=== PATIENT | female | born 1945 | race Caucasian/White ===

== ENCOUNTER 2016-10-04 19:35 | Emergency (ER) | payer OTHER ==
[2016-10-04 19:50] VITALS: TEMP 98.4
[2016-10-04] MEDS ORDERED: KETOROLAC 30 MG/1 ML SDV IVP ONE (20:07)
[2016-10-04] MEDS ORDERED: NS 1,000 ML IV ONE (20:07)
[2016-10-04] MEDS ORDERED: METOCLOPRAMIDE 10 MG/2 ML VIAL IVP ONE (20:07)
[2016-10-04] MEDS ORDERED: HYDROmorphONE/DILAUDID 1 MG/ML SYR IVP ONE (20:07)
--- NOTE | 2016-10-04 20:11 | EDPHY ---
H & P Stated Complaint: N/V, headache Time Seen by Provider: 10/04/16 20:01 HPI/ROS: CHIEF COMPLAINT: Migraine, vomiting he and diarrhea HISTORY OF PRESENT ILLNESS: The patient is a 70-year-old female who comes to the emergency department complaining of nausea, vomiting and diarrhea for the last 3 days. He she states that over the last 24 hours she has also developed a migraine which is typical for her. She tried taking her Maxalt but threw it up. She does have a history of benign meningioma resected several years ago but does not have any residual problems from it. No fevers. No seizures. She states that she is taking care of her granddaughter this week who had the stomach flu that she thinks she caught it from her. The no blood in her stool. REVIEW OF SYSTEMS: Constitutional: denies: chills, fever, recent illness, recent injury EENTM: denies: blurred vision, double vision, nose congestion Respiratory: denies: cough, shortness of breath Cardiac: denies: chest pain, irregular heart rate, lightheadedness, palpitations Gastrointestinal/Abdominal: See HPI Genitourinary: denies: dysuria, frequency, hematuria, pain Musculoskeletal: denies: joint pain, muscle pain Skin: denies: lesions, rash, jaundice, bruising Neurological: denies: headache, numbness, paresthesia, tingling, dizziness, weakness Hematologic/Lymphatic: denies: blood clots, easy bleeding, easy bruising Immunologic/allergic: denies: HIV/AIDS, transplant EXAM: GENERAL: Well-appearing, well-nourished and in no acute distress. HEAD: Atraumatic, normocephalic. EYES: Pupils equal round and reactive to light, extraocular movements intact, sclera anicteric, conjunctiva are normal. ENT: TMs normal, nares patent, oropharynx clear without exudates. Moist mucous membranes. NECK: Normal range of motion, supple without lymphadenopathy or JVD. LUNGS: Breath sounds clear to auscultation bilaterally and equal. No wheezes rales or rhonchi. HEART: Regular rate and rhythm without murmurs, rubs or gallops. ABDOMEN: Soft, nontender, normoactive bowel sounds. No guarding, no rebound. No masses appreciated. BACK: No CVA tenderness, no spinal tenderness, step-offs or deformities EXTREMITIES: Normal range of motion, no pitting or edema. No clubbing or cyanosis. NEUROLOGICAL: Cranial nerves II through XII grossly intact. Normal speech, normal gait. 5/5 strength, normal movement in all extremities, normal sensation PSYCH: Normal mood, normal affect. SKIN: Warm, dry, normal turgor, no visible rashes or lesions. Source: Patient Exam Limitations: No limitations - Personal History Current Tetanus Diphtheria and Acellular Pertussis (TDAP): Yes - Medical/Surgical History Hx Asthma: No Hx Chronic Respiratory Disease: No Hx Diabetes: No Hx Cardiac Disease: No Hx Renal Disease: No Hx Cirrhosis: No Hx Alcoholism: No Hx HIV/AIDS: No Hx Splenectomy or Spleen Trauma: No Other PMH: migraines, reflux - Family History Significant Family History: Hypertension - Social History Smoking Status: Never smoked Alcohol Use: Sober Drug Use: None Constitutional: Initial Vital Signs Temperature (C) 36.9 C 10/04/16 19:46 Heart Rate 84 10/04/16 19:46 Respiratory Rate 20 10/04/16 19:46 Blood Pressure 110/86 H 10/04/16 19:46 O2 Sat (%) 94 10/04/16 19:46 O2 Delivery Mode Room Air O2 (L/minute) 2 Allergies/Adverse Reactions: phenytoin sodium [From Dilantin] Allergy (Severe, Verified 10/04/16 19:46) phenytoin sodium extended [From Dilantin] Allergy (Severe, Verified 10/04/16 19: 46) Penicillins Allergy (Verified 10/04/16 19:46) Home Medications: Medication Instructions Recorded Nefazodone HCl [NEFAZODONE HCL] 400 mg PO 01/21/13 Metoclopramide [Reglan 10 mg tab 10 mg PO BID PRN #10 tab 10/04/16 (RX)] Omeprazole 10/04/16 Medical Decision Making ED Course/Re-evaluation: 9:15 p.m. the patient feels completely better and is asking to go home. She has been hydrated. She is no longer nauseous. Her headache resolved. She declines further observation or treatment. We discussed indications for returning. Differential Diagnosis: Partial list of the Differential diagnosis considered include but were not limited to; migraine, dehydration, gastroenteritis and although unlikely based on the history and physical exam, I also considered tumor, hemorrhage, seizure. I discussed these differential diagnoses and the plan with the patient as well as the usual and expected course. The patient understands that the diagnosis is provisional and that in medicine we are not always correct and that further workup is often warranted. Usual and customary warnings were given. All of the patient's questions were answered. The patient was instructed to return to the emergency department should the symptoms at all worsen or return, otherwise to followup with the physician as we discussed. - Data Points Medications Given: Discontinued Medications Hydromorphone HCl (Dilaudid) 0.5 mg IVP EDNOW ONE Stop: 10/04/16 20:08 Last Admin: 10/04/16 20:27 Dose: 0.5 mg Sodium Chloride (Ns) 1,000 mls @ 0 mls/hr IV ONCE ONE PRN Reason: Wide Open Stop: 10/04/16 20:08 Last Admin: 10/04/16 20:28 Dose: 1,000 mls Ketorolac Tromethamine (Toradol) 30 mg IVP EDNOW ONE Stop: 10/04/16 20:08 Last Admin: 10/04/16 20:28 Dose: 30 mg Metoclopramide HCl (Reglan Injection) 10 mg IVP EDNOW ONE Stop: 10/04/16 20:08 Last Admin: 10/04/16 20:28 Dose: 10 mg Departure - Departure Disposition: Home, Routine, Self-Care Clinical Impression: Gastroenteritis Migraine Qualifiers: Migraine type: without aura Status migrainosus presence: without status migrainosus Intractability: not intractable Qualifier Code: (G43.009) Migraine without aura, not intractable, without status migrainosus Condition: Fair Instructions: Migraine Headache (ED), Gastroenteritis (ED) Referrals: Fatmata Lundy MD [Primary Care Provider] - As per Instructions Prescriptions: Metoclopramide [Reglan 10 mg tab (RX)] 10 mg PO BID PRN #10 tab PRN Reason: Headache
[2016-10-04 21:40] VITALS: BP 109/69; PULSE 75; RESP 16; O2SAT 97
== END 2016-10-04 21:39 | disposition home or self-care (01) ==
DX: K52.9 Noninfective gastroenteritis and colitis, unspecified (principal); G43.009 Migraine without aura, not intractable, without status migrainosus
CPT/HCPCS: 96361; 96374; 96375; 99284; J1170; J1885; J2765

== ENCOUNTER 2017-07-19 20:33 | Emergency (ER) | payer OTHER ==
[2017-07-19] MEDS ORDERED: OXYCODONE/APAP 5/325 TAB PO ONE (21:26)
[2017-07-19] MEDS ORDERED: KETOROLAC 30 MG/1 ML SDV IM ONE (21:26)
--- NOTE | 2017-07-19 21:26 | EDPHY ---
H & P Stated Complaint: lower back pain s/p fall onto rock 30 min ago Time Seen by Provider: 07/19/17 21:14 HPI/ROS: CHIEF COMPLAINT: Low back pain secondary to a fall HISTORY OF PRESENT ILLNESS: The patient is a 71 y/o female complaining of lower back pain secondary to falling on a rock 1 hour ago. This evening she fell off a step because it was dark outside and lost her balance. Patient reports landing directly on her buttocks and sacral area on a rock. She did take Arnica for pain relief. Denies hitting her head or syncope. Denies history of hypertension or diabetes. No fever, chills, chest pain, shortness of breath, palpitations, vomiting, diarrhea, urinary complaints, headache, lightheadedness. No hip pain. REVIEW OF SYSTEMS: Aside from elements discussed in the HPI, a comprehensive 10-point review of systems was reviewed and is negative. PAST MEDICAL HISTORY: Migraines, GERD, brain surgery SOCIAL HISTORY: Friend at bedside, lives in [place], retired VITAL SIGNS: BP: 156/100, others reviewed by me GENERAL: In discomfort while moving. Well-developed, well-nourished, no respiratory distress. HEENT: Atraumatic. Eyes: No icterus, no injection. Mouth: moist mucous membranes. No erythema or lesions. Neck: supple with no adenopathy. LUNGS: Clear to auscultation bilaterally, no wheezes, rhonchi or rales. CARDIAC: Regular rate and rhythm, no rubs, murmurs or gallops. ABDOMEN: Soft, nontender, nondistended, bowel sounds normal. BACK: Sacral and right SI joint tenderness. No lumbar spine tenderness. No CVA tenderness. RECTAL: No tenderness at the coccyx. EXTREMITIES: No trauma. No edema. Full range of motion at both hips without pain. NEURO: Alert and oriented, grossly nonfocal. SKIN: Warm and dry, no rash. PSYCHIATRIC: Normal mentation, no agitation. Portions of this note were transcribed by a medical laboratory technologist. I personally performed a history, physical exam, medical decision making, and confirmed accuracy of information the transcribed note. - Personal History Current Tetanus/Diphtheria Vaccine: Unsure - Medical/Surgical History Hx Asthma: No Hx Chronic Respiratory Disease: No Hx Diabetes: No Hx Cardiac Disease: No Hx Renal Disease: No Hx Cirrhosis: No Hx Alcoholism: No Hx HIV/AIDS: No Hx Splenectomy or Spleen Trauma: No Other PMH: migraines, GERD,. brain sx - Social History Smoking Status: Never smoked Constitutional: Initial Vital Signs Temperature (C) 36.7 C 07/19/17 20:36 Heart Rate 85 07/19/17 20:36 Respiratory Rate 18 07/19/17 20:36 Blood Pressure 156/100 H 07/19/17 20:36 O2 Sat (%) 97 07/19/17 20:36 O2 Delivery Mode Room Air Allergies/Adverse Reactions: phenytoin sodium [From Dilantin] Allergy (Severe, Verified 07/19/17 20:40) phenytoin sodium extended [From Dilantin] Allergy (Severe, Verified 07/19/17 20: 40) Penicillins Allergy (Verified 07/19/17 20:40) Home Medications: Medication Instructions Recorded Omeprazole 10/04/16 Medical Decision Making - Diagnostics Imaging: I viewed and interpreted images myself ED Course/Re-evaluation: The patient is a 71 y/o female presenting with sacral and right SI joint tenderness secondary to missing a step and falling 1 hour ago. She did not hit her head or have a syncopal episode. 2209: I viewed the patient's sacral x-rays, no fracture visualized. 2216: Reassessed patient and discussed imaging findings. I have discussed using an inflatable donut to sit on for comfort. I have also prescribed her hydrocodone for severe pain. Return precautions provided; patient is comfortable with this plan. Differential Diagnosis: Differential diagnosis for the patient's injury was considered including but not limited to contusion, abrasion, laceration, fracture. - Data Points Medications Given: Discontinued Medications Hydrocodone Bitart/Acetaminophen (Voorhees 5/325mg Prepack#6) 1 btl TAKEHOME EDNOW ONE Stop: 07/19/17 22:12 Last Admin: 07/19/17 22:28 Dose: 1 btl Ketorolac Tromethamine (Toradol) 30 mg IM EDNOW ONE Stop: 07/19/17 21:27 Last Admin: 07/19/17 21:39 Dose: 30 mg Oxycodone/Acetaminophen (Percocet 5/325) 1 tab PO EDNOW ONE Stop: 07/19/17 21:27 Last Admin: 07/19/17 21:38 Dose: 1 tab Departure - Departure Disposition: Home, Routine, Self-Care Clinical Impression: Fall (on) (from) other stairs and steps, initial encounter Sacral contusion Qualifiers: Encounter type: initial encounter Qualified Code(s): S30.0XXA - Contusion of lower back and pelvis, initial encounter Condition: Good Instructions: Hydrocodone/Acetaminophen (By mouth), Contusion in Adults (ED) Additional Instructions: Use an inflatable donut to sit on, this should provide more comfort. I recommend Ibuprofen (Motrin, Advil) or Naproxen Sodium (Aleve) for pain and anti-inflammatory effects. You may take either one, but do not take both. Your dose is: Ibuprofen 600 mg every 6-8 hours with food. OR Naproxen Sodium (Aleve) 220 mg every 12 hours. Take Hydrocodone as instructed for severe pain. Follow up with your primary care provider in the next week. Return to the Emergency Department if you experience weakness, numbness, urinary or bowel problems, fever or other worsening of your symptoms. Referrals: Whit Walls MD [Primary Care Provider] - As per Instructions Report Scribed for: Lilliam Moreno Report Scribed by: Naomi Edmond Date of Report: 07/19/17 Time of Report: 21:26
[2017-07-19] MEDS ORDERED: HYDROCOD/APAP 5/325 PREPACK#6 BTL TAKEHOME ONE (22:11)
[2017-07-19 22:43] VITALS: BP 150/103; PULSE 66; RESP 17; TEMP 98.2; O2SAT 93
== END 2017-07-19 22:41 | disposition home or self-care (01) ==
DX: S30.0XXA Contusion of lower back and pelvis, initial encounter (principal); W10.8XXA Fall (on) (from) other stairs and steps, initial encounter
CPT/HCPCS: 72220; 96372; 99284; J1885

== ENCOUNTER → 2017-07-27 | Outpatient (CLI) | payer OTHER | LOC: FIMAGING 10:59 | PROVIDERS: ATTEND Internal Medicine | DX: M51.16 Intervertebral disc disorders with radiculopathy, lumbar region (principal) ==

== ENCOUNTER → 2017-08-12 | Outpatient (CLI) | payer OTHER | LOC: FIMAGING 09:31 | PROVIDERS: ATTEND Physician Assistant | DX: S32.10XA Unspecified fracture of sacrum, initial encounter for closed fracture (principal); M51.36 Other intervertebral disc degeneration, lumbar region ==

== ENCOUNTER → 2017-11-04 | Outpatient (CLI) | payer OTHER | LOC: BMCIMAGING 14:12 | PROVIDERS: ATTEND Internal Medicine | DX: Z12.31 Encounter for screening mammogram for malignant neoplasm of breast (principal) ==

== ENCOUNTER → 2017-11-16 | Outpatient (CLI) | payer OTHER | LOC: BMCIMAGING 10:12 | PROVIDERS: ATTEND Internal Medicine | DX: R92.2 Inconclusive mammogram (principal) ==

== ENCOUNTER → 2018-01-17 | Outpatient (CLI) | payer OTHER | LOC: BHFA 08:30 | PROVIDERS: ATTEND Internal Medicine Cardiovascular Disease | DX: R06.02 Shortness of breath (principal); R00.2 Palpitations | CPT/HCPCS: 78452; 93017; A9500 ==

== ENCOUNTER → 2018-01-24 | Outpatient (CLI) | payer OTHER | LOC: BHFA 09:15 | PROVIDERS: ATTEND Internal Medicine Cardiovascular Disease | DX: R00.2 Palpitations (principal); R06.02 Shortness of breath; R07.9 Chest pain, unspecified ==

== ENCOUNTER → 2018-01-26 | Outpatient (CLI) | payer OTHER | LOC: BHFA 13:45 | PROVIDERS: ATTEND Internal Medicine Cardiovascular Disease | DX: I47.1 Supraventricular tachycardia (principal); R09.02 Hypoxemia ==

== ENCOUNTER 2018-02-20 11:45 | Emergency (ER) | payer OTHER ==
--- NOTE | 2018-02-20 12:01 | EDPHY ---
H & P Stated Complaint: [facility] fall Time Seen by Provider: 02/20/18 12:00 HPI/ROS: HPI: This is a 72-year-old female who presents with Chief Complaint: Accidental fall, right arm and left foot injury Location: Right arm, left foot Quality: Injury Duration: 1 hr prior to arrival Signs and Symptoms: No bleeding, no radiation, no numbness, no weakness, no tingling, no incontinence, no decreased range of motion, + swelling,+ pain, no fever Timing: Acute Severity: Moderate Context: Patient is right-hand dominant, presents with walking on the cement this morning for her morning walk when she lost her traction and everted her left ankle. She reports that she then started to fall forward and she used her right forearm to stop the fall. She reports pain in her right forearm and right left foot at the base of the 5th toe. She denies any ankle pain. She reports that she was ambulatory at the scene. Denies LOC/head injury/neck pain/ dizziness/nausea/vomiting/amnesia. Tetanus is up-to-date. Pain is worsened with touching the area on her forearm and left foot. Denies any decreased range of motion/paresthesias/numbness/tingling. She does not take any blood thinners. She has a small superficial abrasion noted to right forearm that she reports she sustained while trimming the flower push this morning. She cleaned her abrasion this morning with soap and water. Modifying Factors: None Comment: ROS: see HPI Constitutional: No fever, no chills, no weight loss Eyes: No blurred vision Respiratory: No shortness of breath, no cough Cardiovascular: No chest pain Gastrointestinal: No nausea, no vomiting no diarrhea Genitourinary: No dysuria Extremities: No myalgias Neurologic: No weakness, no numbness Skin: No rashes Hematologic: No bruising, no bleeding MEDICAL/SURGICAL/SOCIAL HISTORY: Medical history: Migraines, GERD Surgical history: Brain surgery Social history: Retired. CONSTITUTIONAL: Extremely pleasant, cooperative elderly white female awake and alert, no obvious distress HEENT: Atraumatic and normocephalic, PERRL, EOMI. no globe entrapment, no raccoon eyes. no Schmidt signs. Tympanic membranes clear. No tympanic membrane rupture. Nares patent; no septal hematoma. Oropharynx clear, no exudate and moist pink mucosa. No malocclusion. no dental trauma. Airway patent. No lymphadenopathy. NECK: supple, no midline tenderness, flexion 45 degrees, extension 45 degrees, right and left lateral flexion 45 degrees. No meningismus. Cardiovascular: Normal S1/S2, regular rate, regular rhythm, without murmur rub or gallop. PULMONARY/CHEST: Symmetrical and nontender. no crepitus. Clear to auscultation bilaterally. Good air movement. No accessory muscle usage. ABDOMEN: Soft, nondistended, nontender, no ecchymosis, no rebound, no guarding , no peritoneal signs, no masses or organomegaly. No CVAT. EXTREMITIES: 2/2 pulses, right ELBOW: Full extension to 180, flexion to 150 , no tenderness over medial epicondyle, no tenderness over lateral epicondyle, no effusion. Right forearm shows volar aspect mild swelling medial portion with tenderness to palpation. Superficial abrasion 0.5 in noted to right upper forearm-no active bleeding. Right WRIST: Extension to 70, flexion to 80, radial deviation to 20 degree, ulnar deviation to 30, no scaphoid tenderness, no tenderness over ulnar styloid, no tenderness over radial styloid. Right Ankle: Plantar flexion to 50, dorsiflexion to 20. Foot inversion to 35 degree. No tenderness/swelling Anterior talofibular ligament. No tenderness/ swelling Calcaneofibular ligament, no tenderness/swelling posterior talofibular ligament, no tenderness/swelling posterior inferior tibiofibular ligament. Achilles tendon intact. Patient has tenderness at the base of the 5th digit on the left side with mild swelling. no clubbing, no cyanosis or edema. NEUROLOGICAL: no focal neuro deficits. GCS 15. SKIN: Warm and dry, no erythema. no rash. Good capillary refill. Source: Patient Exam Limitations: No limitations - Personal History Current Tetanus/Diphtheria Vaccine: Yes Current Tetanus Diphtheria and Acellular Pertussis (TDAP): Yes - Medical/Surgical History Hx Asthma: No Hx Chronic Respiratory Disease: No Hx Diabetes: No Hx Cardiac Disease: No Hx Renal Disease: No Hx Cirrhosis: No Hx Alcoholism: No Hx HIV/AIDS: No Hx Splenectomy or Spleen Trauma: No Other PMH: migraines, GERD,. brain sx - Social History Smoking Status: Never smoked Constitutional: Initial Vital Signs Temperature (C) 36.4 C 02/20/18 11:50 Heart Rate 69 02/20/18 11:50 Respiratory Rate 16 02/20/18 11:50 Blood Pressure 125/115 H 02/20/18 11:50 O2 Sat (%) 95 02/20/18 11:50 O2 Delivery Mode Room Air Allergies/Adverse Reactions: phenytoin sodium [From Dilantin] Allergy (Severe, Verified 02/20/18 11:50) phenytoin sodium extended [From Dilantin] Allergy (Severe, Verified 02/20/18 11: 50) Penicillins Allergy (Verified 02/20/18 11:50) Home Medications: Medication Instructions Recorded Omeprazole 10/04/16 Medical Decision Making - Diagnostics Imaging Results: Imaging Impressions Foot X-Ray 02/20/18 11:54 Impression: Nondisplaced fracture transversely oriented through the base of the fifth metatarsal and possible also adjacent fracture in the cuboid. Degenerative change, as above. Diffuse demineralization. Forearm X-Ray 02/20/18 11:54 Impression: Nondisplaced radial neck fracture with right elbow joint effusion. Procedures: Procedure: Splint placement. A right long arm posterior splint and sling was applied by the Emergency Room truck service technician. After application of the splint I returned and re-examined the patient. The splint was adequately immobilizing the joint and distal to the splint the patient's circulation and sensation was intact. Procedure: Splint placement. A left walking boot was applied. After application of the splint I returned and re-examined the patient. The splint was adequately immobilizing the joint and distal to the splint the patient's circulation and sensation was intact. ED Course/Re-evaluation: Patient did not hit her head, no loss of consciousness, no neurological deficits. Head CT scan not required. Tetanus is up-to-date. Fall was mechanical in nature. No signs of syncope/seizure activity/chest pain. Right forearm x-ray and right foot x-ray ordered. Foot x-ray my read shows minimally displaced 5th metatarsal at the base fracture. Forearm x-ray shows nondisplaced radial neck fracture. Again offered patient pain medication, she reports that all pain medications give her migraine headaches and she politely decline. She prefers to use Tylenol and ibuprofen. Patient was ambulatory in the emergency room without deficits prior to discharge. She is able to walk back and forth to the bathroom without any difficulties. Right Long-arm posterior Ortho Glass, sling and left walking boot applied, orthopedic follow-up No signs of neurovascular compromise/tenting of skin/compartment syndrome/ extremities and joints examined above and below area of concern and are neurovascularly intact. This patient was seen under the supervision of my secondary supervising physician. I evaluated care for this patient independently. Discussed this patient with Dr. Doyle. Differential Diagnosis: Differential diagnosis includes but is not limited to radial fracture, ulnar fracture, contusion, sprain, metatarsal fracture. Departure - Departure Disposition: Home, Routine, Self-Care Clinical Impression: Fracture of radial neck, right, closed Qualifiers: Encounter type: initial encounter Fracture alignment: nondisplaced Qualified Code(s): S52.134A - Nondisplaced fracture of neck of right radius, initial encounter for closed fracture Closed nondisplaced fracture of fifth left metatarsal bone Qualifiers: Encounter type: initial encounter Qualified Code(s): S92.355A - Nondisplaced fracture of fifth metatarsal bone, left foot, initial encounter for closed fracture Condition: Good Instructions: Toe Fracture (ED), Elbow Fracture (ED) Additional Instructions: Keep the splint dry and in place until seen by Orthopedics. Wear the sling for comfort. Wear the walking boot while out of bed. Take Tylenol 650 mg every 4 hours and/or Ibuprofen 600 mg every 8 hours with food as needed for pain. Apply ice for 30 minutes at a time; 2-3 times per day for the next 1-[address] not drive a vehicle until cleared by Orthopedics to do so. Follow up with Orthopedics in 5-7 days at which time they will evaluate and recommend with you if conservative management versus further adjuvant therapy is indicated. Return to the ER immediately if you experience new or worsening pain, discoloration, numbness, tingling, or any other symptoms that concern you. Referrals: Whit Walls MD [Primary Care Provider] - As per Instructions Manuel Valles MD [Medical Doctor] - As per Instructions
[2018-02-20 14:04] VITALS: BP 142/93
== END 2018-02-20 14:03 | disposition home or self-care (01) ==
DX: S52.134A Nondisplaced fracture of neck of right radius, initial encounter for closed fracture (principal); S92.355A Nondisplaced fracture of fifth metatarsal bone, left foot, initial encounter for closed fracture; W18.39XA Other fall on same level, initial encounter; Y99.8 Other external cause status; Y93.01 Activity, walking, marching and hiking
CPT/HCPCS: 73090; 73630; 99284; L4386

== ENCOUNTER → 2018-02-25 | Outpatient (CLI) | payer OTHER | LOC: BMCIMAGING 13:23 | PROVIDERS: ATTEND Physician Assistant | DX: S52.131A Displaced fracture of neck of right radius, initial encounter for closed fracture (principal); M77.11 Lateral epicondylitis, right elbow ==

== ENCOUNTER → 2018-03-04 | Outpatient (CLI) | payer OTHER | LOC: BMCIMAGING 09:17 | PROVIDERS: ATTEND Physician Assistant | DX: S52.134A Nondisplaced fracture of neck of right radius, initial encounter for closed fracture (principal); R93.8 Abnormal findings on diagnostic imaging of other specified body structures; M25.421 Effusion, right elbow ==

== ENCOUNTER → 2018-03-07 | Outpatient (CLI) | payer OTHER | LOC: BMCIMAGING 15:11 | PROVIDERS: ATTEND Internal Medicine | DX: Z13.820 Encounter for screening for osteoporosis (principal); M81.0 Age-related osteoporosis without current pathological fracture; Z78.0 Asymptomatic menopausal state; Z87.81 Personal history of (healed) traumatic fracture ==

== ENCOUNTER → 2018-04-01 | Outpatient (CLI) | payer OTHER | LOC: BMCIMAGING 09:01 | PROVIDERS: ATTEND Physician Assistant | DX: S42.401D Unspecified fracture of lower end of right humerus, subsequent encounter for fracture with routine healing (principal) ==

== ENCOUNTER → 2018-04-03 | Outpatient (CLI) | payer OTHER ==
[~2018-04-03] MED LIST: GADOBUTROL 10 ML VIAL IVP ONE
== END ==
LOC: FIMAGING 09:28
PROVIDERS: ATTEND Neurological Surgery
DX: D32.0 Benign neoplasm of cerebral meninges (principal); R90.82 White matter disease, unspecified; G93.89 Other specified disorders of brain
CPT/HCPCS: 70544; 70553; A9585; 82565-PO

== ENCOUNTER 2018-10-13 12:23 | Emergency (ER) | payer OTHER ==
[2018-10-13] MEDS ORDERED: ONDANSETRON DISINTEGRATING 4 MG TAB PO ONE (13:09)
[2018-10-13] MEDS ORDERED: KETOROLAC 30 MG/1 ML SDV IVP ONE (13:09)
[2018-10-13] MEDS ORDERED: NS 1,000 ML IV ONE ×2 (13:12→14:53)
--- NOTE | 2018-10-13 13:12 | EDPHY ---
H & P Stated Complaint: migraine - Personal History Current Tetanus/Diphtheria Vaccine: Yes Current Tetanus Diphtheria and Acellular Pertussis (TDAP): Yes - Medical/Surgical History Hx Asthma: No Hx Chronic Respiratory Disease: No Hx Diabetes: No Hx Cardiac Disease: No Hx Renal Disease: No Hx Cirrhosis: No Hx Alcoholism: No Hx HIV/AIDS: No Hx Splenectomy or Spleen Trauma: No Other PMH: migraines, GERD, brain tumor. brain sx - Social History Smoking Status: Never smoked Time Seen by Provider: 10/13/18 12:43 HPI/ROS: CHIEF COMPLAINT: Migraine headache HISTORY OF PRESENT ILLNESS: 72-year-old female presents with a migraine headache. Onset of typical migraine headache 3 days ago. The headache is located behind the right eye and throbbing. Associated with nausea and photophobia. Maxalt without relief at home. Prior emergency department visits x2 for migraine headaches. REVIEW OF SYSTEMS: complete 10 point ROS reviewed and is negative except for the noted elements in the HPI (Kasandra Vasquez) - Physical Exam Exam: General Appearance: Alert, pleasant, appears in pain Eyes: Pupils equal and round, no conjunctival pallor or injection ENT, Mouth: Mucous membranes moist Neck: Normal inspection Respiratory: Lungs are clear to auscultation Cardiovascular: Regular rate and rhythm Gastrointestinal: Abdomen is soft and nontender Neurological: Normal neuro exam Skin: Warm and dry Extremities: Normal inspection Psychiatric: Mood and affect normal (Kasandra Vasquez) Constitutional: Initial Vital Signs Temperature (C) 36.7 C 10/13/18 12:36 Heart Rate 75 10/13/18 12:36 Respiratory Rate 16 10/13/18 12:36 Blood Pressure 151/83 H 10/13/18 12:36 O2 Sat (%) 96 10/13/18 12:36 O2 Delivery Mode Nasal Cannula O2 (L/minute) 2 Allergies/Adverse Reactions: phenytoin sodium [From Dilantin] Allergy (Severe, Verified 10/13/18 12:35) phenytoin sodium extended [From Dilantin] Allergy (Severe, Verified 10/13/18 12: 35) Penicillins Allergy (Verified 10/13/18 12:35) Home Medications: Medication Instructions Recorded Omeprazole 10/04/16 Mag-Citrate 10/13/18 Maxalt 10/13/18 Prednisone 10/13/18 Prolia 10/13/18 Medical Decision Making ED Course/Re-evaluation: This patient presents with a typical migraine headache. No relief with Maxalt or prednisone. At the patient's request, I reviewed her past medical record, as she had a prior adverse reaction to 1 of the medications given during a previous visit for migraine headache. Old medical record reviewed, possible prior adverse reaction to Reglan. During that visit, she received Reglan and Dilaudid IV. She did not receive Benadryl at that time. IV normal saline 1 L, Toradol 30 mg IV, morphine 4 mg IV and Zofran 4 mg IV given. 1400: Starting to feel better. 1430: doesn't feel better, requests more medications. Reglan, Benadryl and Decadron IV given. Discussed with the patient the possibility of an adverse reaction to Reglan. However, Benadryl should help avoid any side effect from Reglan. She understands and wishes to proceed with meds. (Kasandra Vasquez) I took over care of this patient at 3:00 p.m.. This patient presents to the emergency department with complaint of a migraine headache. This headache is typical of her previous migraine headaches. She initially received Toradol and morphine. She felt better for a little while but the headache came back. She is now receiving Reglan, Benadryl and Decadron for further treatment of her headache. 4:30 p.m., the patient was re-evaluated. She is resting comfortably at this time. She reports that her headache is mostly dissipated but she still has a sensation of discomfort on the right side of her head. I discussed giving her more medication and observing her for a longer period of time in the emergency department. She does not want to do this at this time. She states that she does feel comfortable going home. She has called her who will come and pick her up. Her neck is supple. No pain on flexion of her neck. Repeat neurologic Assessment is nonfocal. Pupils are equal round reactive to light at 3-2 mm bilaterally. No significant photophobia. Return to emergency department precautions were thoroughly reviewed with her. Follow-up was discussed. All of her questions were answered. She was discharged from the emergency department in good condition with her who is driving. ( Josie Garcia) Differential Diagnosis: Headache including but not limited to subarachnoid hemorrhage, migraine headache , tension headache and infectious causes such as meningitis, pharyngitis and sinusitis. (Kasandra Vasquez) - Data Points Medications Given: Discontinued Medications Dexamethasone (Decadron Injection) 6 mg IVP EDNOW ONE Stop: 10/13/18 14:43 Last Admin: 10/13/18 14:52 Dose: 6 mg Diphenhydramine HCl (Benadryl Injection) 25 mg IVP EDNOW ONE Stop: 10/13/18 14:43 Last Admin: 10/13/18 14:52 Dose: 25 mg Sodium Chloride (Ns) 1,000 mls @ 0 mls/hr IV ONCE ONE; Wide Open PRN Reason: Protocol Stop: 10/13/18 13:13 Last Admin: 10/13/18 13:24 Dose: 1,000 mls Sodium Chloride (Ns) 1,000 mls @ 0 mls/hr IV EDNOW ONE; Wide Open PRN Reason: Protocol Stop: 10/13/18 14:54 Last Admin: 10/13/18 14:54 Dose: 1,000 mls Ketorolac Tromethamine (Toradol) 30 mg IVP EDNOW ONE Stop: 10/13/18 13:10 Last Admin: 10/13/18 13:25 Dose: 30 mg Metoclopramide HCl (Reglan Injection) 10 mg IVP EDNOW ONE Stop: 10/13/18 14:43 Last Admin: 10/13/18 14:52 Dose: 10 mg Morphine Sulfate (Morphine) 4 mg IVP EDNOW ONE Stop: 10/13/18 13:13 Last Admin: 10/13/18 13:27 Dose: 4 mg Ondansetron HCl (Zofran Odt) 4 mg PO EDNOW ONE Stop: 10/13/18 13:10 Last Admin: 10/13/18 13:28 Dose: Not Given Ondansetron HCl (Zofran) 4 mg IVP EDNOW ONE Stop: 10/13/18 13:29 Last Admin: 10/13/18 13:29 Dose: 4 mg Departure - Departure Disposition: Home, Routine, Self-Care Clinical Impression: Migraine headache Qualifiers: Migraine type: unspecified Status migrainosus presence: with status migrainosus Intractability: intractable Qualified Code(s): G43.911 - Migraine, unspecified, intractable, with status migrainosus Condition: Good Instructions: Migraine Headache (ED) Additional Instructions: Read and follow provided instructions. Follow-up with your primary care physician or neurologist in 1-2 days for re- evaluation as needed. Take your medication as prescribed. Keep yourself well hydrated. Return to the emergency department for return of headache, vomiting, fever, neck pain or other serious concerns. Referrals: Whit Walls MD [Primary Care Provider] - As per Instructions Baljit Norton MD [Medical Doctor] - As per Instructions
[2018-10-13] MEDS ORDERED: ONDANSETRON 4 MG/2 ML VIAL ONE (13:16)
[2018-10-13] MEDS ORDERED: ONDANSETRON 4 MG/2 ML VIAL IVP ONE (13:28)
[2018-10-13] MEDS ORDERED: DEXAMETHASONE 10 MG/ML VIAL IVP ONE (14:42)
[2018-10-13] MEDS ORDERED: METOCLOPRAMIDE 10 MG/2 ML VIAL IVP ONE (14:42)
[2018-10-13 16:49] VITALS: BP 100/70
== END 2018-10-13 16:53 | disposition home or self-care (01) ==
DX: G43.911 Migraine, unspecified, intractable, with status migrainosus (principal); E86.9 Volume depletion, unspecified
CPT/HCPCS: 96361; 96374; 96375; 99284; J1100; J1200; J1885; J2270; J2405; J2765

== ENCOUNTER → 2018-11-13 | Outpatient (CLI) | payer OTHER | LOC: FIMAGING 13:48 | PROVIDERS: ATTEND Physician Assistant | DX: M50.223 Other cervical disc displacement at C6-C7 level (principal) ==

== ENCOUNTER 2018-11-18 18:52 | Emergency (ER) | payer OTHER ==
[2018-11-18] MEDS ORDERED: KETOROLAC 30 MG/1 ML SDV IVP ONE (19:17)
[2018-11-18] MEDS ORDERED: METOCLOPRAMIDE 10 MG/2 ML VIAL IVP ONE (19:17)
[2018-11-18] MEDS ORDERED: methylPREDNISolone SOD SUCC 125 MG/2 ML VIAL IVP ONE (19:17)
--- NOTE | 2018-11-18 19:17 | EDPHY ---
H & P Stated Complaint: High BP/Migraine Time Seen by Provider: 11/18/18 19:17 - Personal History Current Tetanus/Diphtheria Vaccine: Unsure - Medical/Surgical History Hx Asthma: No Hx Chronic Respiratory Disease: No Hx Diabetes: No Hx Cardiac Disease: No Hx Renal Disease: No Hx Cirrhosis: No Hx Alcoholism: No Hx HIV/AIDS: No Hx Splenectomy or Spleen Trauma: No Other PMH: migraines, GERD, brain tumor. brain sx - Social History Smoking Status: Never smoked Constitutional: Initial Vital Signs Temperature (C) 36.6 C 11/18/18 18:56 Heart Rate 75 11/18/18 18:56 Respiratory Rate 18 11/18/18 18:56 Blood Pressure 190/99 H 11/18/18 18:56 O2 Sat (%) 96 11/18/18 18:56 O2 Delivery Mode Room Air Allergies/Adverse Reactions: phenytoin sodium [From Dilantin] Allergy (Severe, Verified 11/18/18 18:58) phenytoin sodium extended [From Dilantin] Allergy (Severe, Verified 11/18/18 18: 58) Penicillins Allergy (Verified 11/18/18 18:58) Home Medications: Medication Instructions Recorded Omeprazole 10/04/16 Mag-Citrate 10/13/18 Maxalt 10/13/18 Prednisone 10/13/18 Prolia 10/13/18 Medical Decision Making ED Course/Re-evaluation: CHIEF COMPLAINT: HISTORY OF PRESENT ILLNESS: The patient is a 73 y/o female with a history of migraines and a brain tumor requiring surgery complaining of a migraine and high blood pressure today. She had imaging studies recently which did not reveal any new brain tumors. For the last month the patient's migraines have been worsening. Today the patient developed another migraine and was advised to take Benadryl from her neurologist , Dr. Norton. She presented to an urgent care today and was advised to present to the emergency department due to her high blood pressure. No fever, body aches, lightheadedness, chest pain, heart palpitations, shortness of breath , cough, abdominal pain, urinary or bowel complaints, numbness, paresthesias. REVIEW OF SYSTEMS: A comprehensive 10 system review of systems is otherwise negative aside from elements mentioned in the history of present illness and medical decision making. PHYSICAL EXAM: HR, BP, O2 Sat, RR. Temp noted General Appearance: Lying in a dark room, alert, well hydrated, appropriate, and non-toxic appearing. Head: Atraumatic without scalp tenderness or obvious injury Eyes: Pupils equal, round, reactive to light and accommodation, EOMI, no trauma , no injection. Ears: Clear bilaterally, no perforation, normal landmarks Nose: Atraumatic, no rhinorrhea, clear. Throat: There is no erythema or exudates, no lesions, normal tonsils, mucus membranes moist. Neck: Supple, 2+ carotid upstroke, nontender, no lymphadenopathy. Respiratory: No retractions, no distress, no wheezes, and no accessory muscle use. Lungs are clear to auscultation bilaterally. Cardiovascular: Regular rate and rhythm, no murmurs, rubs, or gallops. Bilateral carotid, radial, dorsalis pedis, and posterior tibial pulses intact. Good capillary refill all extremities. Gastrointestinal: Abdomen is soft, nontender, non-distended, no masses, no rebound, no guarding, no peritoneal signs. Musculoskeletal: Normal active ROM of all extremities, atraumatic. Neurological: Alert, appropriate, and interactive. The patient has normal DTRs and non-focal cranial nerves, motor, sensory, and cerebellar exam. Skin: No rashes, good turgor, no nodules on palpation. Past medical history: Migraines, GERD, brain tumor Past surgical history: Brain surgery Family history: Denies Social history: at bedside, retried, lives in [place] DIAGNOSTICS/PROCEDURES/CRITICAL CARE TIME: Not indicated DIFFERENTIAL DIAGNOSIS: The differential diagnosis for the patient's headache included but was not limited to subarachnoid hemorrhage, migraine headache, tension headache and infectious causes such as meningitis, pharyngitis and sinusitis. MEDICAL DECISION MAKING: The patient is a 73 y/o female with a history of migraines and a brain tumor requiring surgery presenting with worsening migraines and high blood pressure today. The patient is currently hypertensive with a BP of 166/113. She is lying in a dark room but has a normal physical exam. Migraine cocktail administered. Neuroimaging is not indicated as she just had it performed. 2013: Patient still has a mild headache after the migraine cocktail. 2030: Patient is feeling better. I have advised her to follow up with her neurologist. Return precautions provided; patient is comfortable with this plan. - Data Points Medications Given: Discontinued Medications Diphenhydramine HCl (Benadryl Injection) 25 mg IVP EDNOW ONE Stop: 11/18/18 19:25 Last Admin: 11/18/18 19:32 Dose: 25 mg Sodium Chloride (Ns) 1,000 mls @ 0 mls/hr IV ONCE ONE; Wide Open PRN Reason: Protocol Stop: 11/18/18 19:20 Last Admin: 11/18/18 19:32 Dose: 1,000 mls Ketorolac Tromethamine (Toradol) 30 mg IVP EDNOW ONE Stop: 11/18/18 19:18 Last Admin: 11/18/18 19:32 Dose: 30 mg Methylprednisolone Sodium Succinate (Solu-Medrol) 125 mg IVP EDNOW ONE Stop: 11/18/18 19:18 Last Admin: 11/18/18 19:32 Dose: 125 mg Metoclopramide HCl (Reglan Injection) 10 mg IVP EDNOW ONE Stop: 11/18/18 19:18 Last Admin: 11/18/18 19:33 Dose: 10 mg Departure - Departure Disposition: Home, Routine, Self-Care Clinical Impression: Migraine Qualifiers: Migraine type: unspecified Status migrainosus presence: without status migrainosus Intractability: intractable Qualified Code(s): G43.919 - Migraine, unspecified, intractable, without status migrainosus Condition: Good Instructions: Migraine Headache (ED) Additional Instructions: 1. Follow-up with your primary care physician within 72 hours. 2. Return to the emergency department immediately for recurrence of headache, nausea, vomiting, numbness, weakness, neck pain, fever or other concerns. 3. Ask your neurologist about Aimovig for your migraine. Referrals: Whit Walls MD [Primary Care Provider] - As per Instructions Baljit Norton MD [Medical Doctor] - As per Instructions Report Scribed for: Cheng West Report Scribed by: Naomi Edmond Date of Report: 11/18/18 Time of Report: 19:19
[2018-11-18] MEDS ORDERED: NS 1,000 ML IV ONE (19:19)
[2018-11-18 20:28] VITALS: BP 145/89
== END 2018-11-18 20:46 | disposition home or self-care (01) ==
DX: G43.919 Migraine, unspecified, intractable, without status migrainosus (principal); I10 Essential (primary) hypertension; E86.9 Volume depletion, unspecified; Z85.841 Personal history of malignant neoplasm of brain
CPT/HCPCS: 96361; 96374; 96375; 99284; J1200; J1885; J2765; J2930

== ENCOUNTER → 2019-02-16 | Outpatient (CLI) | payer OTHER | LOC: BMCIMAGING 15:38 ==

== ENCOUNTER → 2019-02-20 | Outpatient (CLI) | payer OTHER | LOC: FIMAGING 18:29 ==